=== PATIENT | male | born 1965 | race Caucasian/White ===

== ENCOUNTER 2017-08-15 12:28 | Emergency (ER) | payer SELFPAY ==
[2017-08-15] MEDS ORDERED: Ondansetron ODT TAB* 4 MG SL ONE (13:52)
[2017-08-15 14:35] LABS: Hematocrit 49 % (42-52); Hemoglobin 16.7 g/dl (14.0-18.0); Mean Corpuscular HGB Conc 34 g/dl (31-36); Mean Corpuscular Hemoglobin 33 pg (27-31); Mean Corpuscular Volume 99 fL (80-94); Mean Platelet Volume 9 um3 (7.4-10.4); Red Blood Count 4.99 10^6/ul (4.0-5.4); Red Cell Distribution Width 15 % (10.5-15); White Blood Count 12.5 10^3/ul (3.5-10.8)
--- NOTE | 2017-08-15 14:46 | ED ---
Headache - HPI Summary HPI Summary: Patient presents to the ED 4 days after ingesting a small amount of crazy glue after trying to use the glue to put a denture/filling back into place. Since that time he states he has felt as though he has had a dry mouth, N/V and LLQ abdominal cramping. Denies diarrhea. Endorses dry mouth. He states all the symptoms began immediately after he swallowed the glue. Denies fevers, sweats or chills. Denies SOB, chest pain, palpitations or rashes. - History Of Current Complaint Chief Complaint: EDGeneral Stated Complaint: DENTAL ISSUE/USED CRAZY GLUE Time Seen by Provider: 08/15/17 13:31 Hx Obtained From: Patient Onset/Duration: Sudden Onset Initially Headache Was: Mild Currently Pain Is: Mild Timing: Constant Character: Dull Aggravating Factor: Nothing Allevating Factors: Nothing - Risk Factors SAH Risk Factors: Negative Meningitis Risk Factors: Negative Temporal Arteritis Risk Factors: Negative - Allergies/Home Medications Allergies/Adverse Reactions: Allergies Allergy/AdvReac Type Severity Reaction Status Date / Time No Known Allergies Allergy Verified 08/15/17 13:36 PMH/Surg Hx/FS Hx/Imm Hx Previously Healthy: Yes - Immunization History Hx Pertussis Vaccination: No Immunizations Up to Date: Unable to Obtain/Confirm Infectious Disease History: No Infectious Disease History: Denies: Traveled Outside the [place] in Last 30 Days - Social History Occupation: Employed Full-time Lives: With Family Alcohol Use: Daily Alcohol Amount: fireball and beer Hx Substance Use: No Substance Use Type: Reports: None Hx Tobacco Use: Yes Smoking Status (MU): Light Every Day Tobacco Smoker Review of Systems Constitutional: Negative Positive: Fatigue. Negative: Fever, Chills Eyes: Negative Positive: Other - dry mouth Cardiovascular: Negative Respiratory: Negative Positive: Abdominal Pain - LLQ pain intermittent, Vomiting, Nausea Genitourinary: Negative Positive: no symptoms reported, see HPI Positive: Headache Psychological: Normal All Other Systems Reviewed And Are Negative: Yes Physical Exam Triage Information Reviewed: Yes Vital Signs On Initial Exam: Initial Vitals Temp Pulse Resp BP Pulse Ox 98.4 F 93 20 146/78 96 08/15/17 12:36 08/15/17 12:36 08/15/17 12:36 08/15/17 12:36 08/15/17 12:36 Vital Signs Reviewed: Yes Appearance: Positive: Well-Appearing, Well-Nourished Skin: Positive: Warm, Skin Color Reflects Adequate Perfusion, Dry Head/Face: Positive: Normal Head/Face Inspection Eyes: Positive: EOMI, PARTH, Conjunctiva Clear Neck: Positive: Supple, Nontender, No Lymphadenopathy Respiratory/Lung Sounds: Positive: Clear to Auscultation, Breath Sounds Present Cardiovascular: Positive: Normal, RRR, Pulses are Symmetrical in both Upper and Lower Extremities Musculoskeletal: Positive: Normal, Strength/ROM Intact Neurological: Positive: Sensory/Motor Intact, Alert, Oriented to Person Place, Time, CN Intact II-III, Speech Normal Psychiatric: Positive: Normal - Klaudia Coma Scale Coma Scale Total: 15 Diagnostics - Vital Signs Vital Signs Temp Pulse Resp BP Pulse Ox 08/15/17 13:34 80 97 08/15/17 13:32 153/77 08/15/17 12:36 98.4 F 93 20 146/78 96 - Laboratory Result Diagrams: 08/15/17 14:10 08/15/17 14:10 Lab Statement: Any lab studies that have been ordered have been reviewed, and results considered in the medical decision making process. Headache Course/Dx - Course Course Of Treatment: During the course of treatment, patient was encouraged to try to drink more water as symptoms have likely been caused by not drinking water in the last 4 days. He is given zofran with improvement and encouraged gatorate and water. Likely LLQ pain intermittently from constipation from dehydration. He states he feels OK today per patient. Encouraged BIOTENE for dry mouth. Crazy glue ingredients noted to only be lethal in extremely high doses and swallowing small amounts would likely not cause this cycle of symptoms. I have discussed this with patient and he agrees to try the nausea medication and biotene and return if symptoms worsen. - Diagnoses Provider Diagnoses: Nausea & vomiting Discharge - Discharge Plan Condition: Stable Disposition: HOME Prescriptions: Ondansetron ODT TAB* [Zofran 4 MG Odt TAB*] 4 mg PO Q6H PRN #12 tab.odt MDD 4 PRN Reason: Nausea Patient Education Materials: Acute Nausea and Vomiting (ED) Forms: *Work Release Referrals: No Primary Care Phys,NOPCP [Primary Care Provider] - Additional Instructions: BIOTENE over the counter for dry mouth If you are having episodes of vomiting, you may become dehydrated. Drink plenty of fluids. If you feel you cannot keep enough fluids down, you may supplement with drinks like Gatorade or V8 juice. This will help balance your electrolytes which are lost during dehydration. Take any medication prescribed to you as directed. Zofran as prescribed. Slowly introduce foods into your diet that you can tolerate. Examples of low reactive foods are crackers, soup, rice, and breads. See below. If you have any questions regarding your medications, you may call the office or your pharmacist. If your symptoms fail to improve or worsen, please call your primary care provider or seek other medical attention. Drink small amounts of fluid as tolerated When able to eat follow BRAT diet: Bananas, rice, applesauce, toast Return to ED if develop fever that does not respond to Tylenol or ibuprofen, severe abdominal pain, or any new or worsening symptoms If you are unable to have a bowel movement or feel constipated, I recommend SENNA capsules at night Rest for the next few days until you replete your fluids If anything becomes worse, return to the ED
[2017-08-15 14:48] LABS: Albumin 3.8 g/dL (3.2-5.2); BUN/Creatinine Ratio 10.5 (8-20); EGFR African American 120.1 (>60); EGFR Non-African American 93.4 (>60); Globulin 2.6 g/dL (2-4); Potassium 4.1 mmol/L (3.5-5.0); Total Bilirubin 0.5 mg/dL (0.2-1.0); Total Protein 6.4 g/dL (6.4-8.9)
[2017-08-15 15:10] VITALS: BP 133/67
== END 2017-08-15 15:14 | disposition home or self-care (01) ==
LOC: ED 12:28
DX: R11.2 Nausea with vomiting, unspecified (principal); R10.32 Left lower quadrant pain; R51 Headache; F17.210 Nicotine dependence, cigarettes, uncomplicated
CPT/HCPCS: 36415; 80053; 83605; 85025; 99282; A9270-GY

== ENCOUNTER 2017-11-29 20:34 | Emergency (ER) | payer SELFPAY ==
[2017-11-29] MEDS ORDERED: Nitroglycerin 2% OINT* 1 GM PAK TOPICAL ONE (20:46)
--- NOTE | 2017-11-29 21:06 | RAD ---
HISTORY: Chest pain COMPARISONS: June 10, 2013 VIEWS: 2: frontal portable view of the chest at 8:58 PM FINDINGS: LINES AND TUBES: None. CARDIOMEDIASTINAL SILHOUETTE: The cardiomediastinal silhouette is normal for portable technique. PLEURA: The costophrenic angles are sharp. No pleural abnormalities are noted. LUNG PARENCHYMA: The lungs are clear. ABDOMEN: The upper abdomen is clear. There is no subphrenic gas. BONES AND SOFT TISSUES: No bone or soft tissue abnormalities are noted. IMPRESSION: NO ACTIVE CARDIOPULMONARY DISEASE.
[2017-11-29 21:15] LABS: ABS Basophils 0.1 10^3/ul (0-0.2); ABS Eosinophils 0.4 10^3/ul (0-0.6); ABS Lymphocytes 2.8 10^3/ul (1.0-4.8); ABS Neutrophils 7.3 10^3/ul (1.5-7.7); ABS Nucleated RBC 0 10^3/ul; Eosinophil % 3.1 % (0-6); Hematocrit 45 % (42-52); Hemoglobin 15.2 g/dl (14.0-18.0); Lymphocyte % 24.4 % (25-47); Mean Corpuscular HGB Conc 34 g/dl (31-36); Mean Corpuscular Hemoglobin 33 pg (27-31); Mean Corpuscular Volume 96 fL (80-94); Mean Platelet Volume 8.4 um3 (7.4-10.4); Nucleated Red Blood Cells % 0.1; Platelet Count 241 10^3/ul (150-450); Red Blood Count 4.65 10^6/ul (4.0-5.4); Red Cell Distribution Width 14 % (10.5-15); White Blood Count 11.5 10^3/ul (3.5-10.8)
[2017-11-29 21:23] LABS: INR 0.86 (0.77-1.02)
[2017-11-29 21:35] LABS: EGFR Non-African American 80.3 (>60)
--- NOTE | 2017-11-29 21:55 | ED ---
Mendoza Hillman Tiffany, scribed for Johnnie Skaggs on 11/29/17 at 2051 . HPI Chest Pain - HPI Summary HPI Summary: The patient is a 52 year old M [facility] c/o chest pain since one hour ago. The patient rates the pain 11/10 in severity. Symptoms aggravated by nothing. Symptoms alleviated by nothing. Reports nausea. Denies vomiting. His daughter recently three months ago. Today patient received text messages that shes still alive. No hx of diabetes or hypertension. Hx of PTSD and dissociative behavior. - History of Current Complaint Chief Complaint: EDChestPainROMI Time Seen by Provider: 11/29/17 20:40 Hx Obtained From: Patient Onset/Duration: Started Hours Ago - 1 hour ago, Still Present Timing: Constant Current Severity: Severe Pain Intensity: 11 Pain Scale Used: 0-10 Numeric Aggravating Factor(s): Nothing Alleviating Factor(s): Nothing Associated Signs and Symptoms: Positive: Nausea. Negative: Vomiting - Allergy/Home Medications Allergies/Adverse Reactions: Allergies Allergy/AdvReac Type Severity Reaction Status Date / Time No Known Allergies Allergy Verified 08/15/17 13:36 Home Medications: Home Medications NK [No Home Medications Reported] 11/29/17 [History Confirmed 11/29/17] PMH/Surg Hx/FS Hx/Imm Hx Previously Healthy: No Endocrine/Hematology History: Denies: Hx Diabetes Cardiovascular History: Denies: Hx Hypertension History: Denies: Hx Renal Disease Sensory History: Denies: Hx Contacts or Glasses, Hx Deafness Opthamlomology History: Denies: Hx Contacts or Glasses, Hx Legally Blind EENT History: Denies: Hx Deafness Psychiatric History: Reports: Hx Post Traumatic Stress Disorder, Other Psychiatric Issues/Disorders - Dissociative behavior Infectious Disease History: No Infectious Disease History: Denies: Traveled Outside the [place] in Last 30 Days - Family History Known Family History: Negative: Cardiac Disease - Social History Alcohol Use: Daily Alcohol Amount: fireball and beer Hx Substance Use: Yes Substance Use Type: Reports: Marijuana Hx Tobacco Use: Yes Smoking Status (MU): Smoker, Current Status Unknown Review of Systems Positive: Chest Pain Positive: Nausea. Negative: Vomiting All Other Systems Reviewed And Are Negative: Yes Physical Exam - Summary Physical Exam Summary: Appearance: Well appearing, no pain distress Skin: warm, dry, reflects adequate perfusion Head/face: normal Eyes: EOMI, PARTH ENT: normal Neck: supple, non-tender Respiratory: CTA, breath sounds present Cardiovascular: RRR, pulses symmetrical Abdomen: non-tender, soft Bowel: present Musculoskeletal: normal, strength/ROM intact Psych: anxious Triage Information Reviewed: Yes Vital Signs On Initial Exam: Initial Vitals Temp Pulse Resp BP Pulse Ox 98.7 F 61 30 138/78 100 11/29/17 20:35 11/29/17 20:35 11/29/17 20:35 11/29/17 20:35 11/29/17 20:35 Vital Signs Reviewed: Yes Diagnostics - Vital Signs Vital Signs Temp Pulse Resp BP Pulse Ox 11/29/17 20:35 98.7 F 61 30 138/78 100 - Laboratory Lab Results: Lab Results 11/29/17 11/29/17 11/29/17 Range/Units 21:00 21:00 21:00 WBC 11.5 H (3.5-10.8) 10^3/ul RBC 4.65 (4.0-5.4) 10^6/ul Hgb 15.2 (14.0-18.0) g/dl Hct 45 (42-52) % MCV 96 H (80-94) fL MCH 33 H (27-31) pg MCHC 34 (31-36) g/dl RDW 14 (10.5-15) % Plt Count 241 (150-450) 10^3/ul MPV 8.4 (7.4-10.4) um3 Neut % (Auto) 63.7 (38-83) % Lymph % (Auto) 24.4 L (25-47) % Catahoula % (Auto) 8.3 H (0-7) % Eos % (Auto) 3.1 (0-6) % Baso % (Auto) 0.5 (0-2) % Absolute Neuts (auto) 7.3 (1.5-7.7) 10^3/ul Absolute Lymphs (auto) 2.8 (1.0-4.8) 10^3/ul Absolute Monos (auto) 1.0 H (0-0.8) 10^3/ul Absolute Eos (auto) 0.4 (0-0.6) 10^3/ul Absolute Basos (auto) 0.1 (0-0.2) 10^3/ul Absolute Nucleated RBC 0 10^3/ul Nucleated RBC % 0.1 INR (Anticoag Therapy) (0.77-1.02) APTT (26.0-36.3) seconds Sodium 137 (133-145) mmol/L Potassium 3.6 (3.5-5.0) mmol/L Chloride 103 (101-111) mmol/L Carbon Dioxide 25 (22-32) mmol/L Anion Gap 9 (2-11) mmol/L BUN 12 (6-24) mg/dL Creatinine 0.98 (0.67-1.17) mg/dL Est GFR ( Amer) 103.3 (>60) Est GFR (Non-Af Amer) 80.3 (>60) BUN/Creatinine Ratio 12.2 (8-20) Glucose 108 H (70-100) mg/dL Lactic Acid (0.5-2.0) mmol/L Calcium 9.0 (8.6-10.3) mg/dL Total Bilirubin 0.60 (0.2-1.0) mg/dL AST 13 (13-39) U/L ALT 17 (7-52) U/L Alkaline Phosphatase 47 (34-104) U/L Troponin I 0.00 (<0.04) ng/mL B-Natriuretic Peptide 26 ( - 100) pg/mL Total Protein 6.4 (6.4-8.9) g/dL Albumin 4.0 (3.2-5.2) g/dL Globulin 2.4 (2-4) g/dL Albumin/Globulin Ratio 1.7 (1-3) 11/29/17 11/29/17 Range/Units 21:00 21:00 WBC (3.5-10.8) 10^3/ul RBC (4.0-5.4) 10^6/ul Hgb (14.0-18.0) g/dl Hct (42-52) % MCV (80-94) fL MCH (27-31) pg MCHC (31-36) g/dl RDW (10.5-15) % Plt Count (150-450) 10^3/ul MPV (7.4-10.4) um3 Neut % (Auto) (38-83) % Lymph % (Auto) (25-47) % Catahoula % (Auto) (0-7) % Eos % (Auto) (0-6) % Baso % (Auto) (0-2) % Absolute Neuts (auto) (1.5-7.7) 10^3/ul Absolute Lymphs (auto) (1.0-4.8) 10^3/ul Absolute Monos (auto) (0-0.8) 10^3/ul Absolute Eos (auto) (0-0.6) 10^3/ul Absolute Basos (auto) (0-0.2) 10^3/ul Absolute Nucleated RBC 10^3/ul Nucleated RBC % INR (Anticoag Therapy) 0.86 (0.77-1.02) APTT 30.2 (26.0-36.3) seconds Sodium (133-145) mmol/L Potassium (3.5-5.0) mmol/L Chloride (101-111) mmol/L Carbon Dioxide (22-32) mmol/L Anion Gap (2-11) mmol/L BUN (6-24) mg/dL Creatinine (0.67-1.17) mg/dL Est GFR ( Amer) (>60) Est GFR (Non-Af Amer) (>60) BUN/Creatinine Ratio (8-20) Glucose (70-100) mg/dL Lactic Acid 1.3 (0.5-2.0) mmol/L Calcium (8.6-10.3) mg/dL Total Bilirubin (0.2-1.0) mg/dL AST (13-39) U/L ALT (7-52) U/L Alkaline Phosphatase (34-104) U/L Troponin I (<0.04) ng/mL B-Natriuretic Peptide ( - 100) pg/mL Total Protein (6.4-8.9) g/dL Albumin (3.2-5.2) g/dL Globulin (2-4) g/dL Albumin/Globulin Ratio (1-3) Result Diagrams: 11/29/17 21:00 11/29/17 21:00 Lab Statement: Any lab studies that have been ordered have been reviewed, and results considered in the medical decision making process. - Radiology CXR Radiology Interpretation Completed By: Radiologist - NO ACTIVE CARDIOPULMONARY DISEASE. ED physician has reviewed this report. - EKG 20:36 Cardiac Rate: NL - 62 BPM EKG Rhythm: Sinus Rhythm EKG Interpretation: Non-specific ST changes. Questionable early repolarization. Re-Evaluation - Re-Evaluation First Eval Re-Evaluation Time: 21:44 Change: Unchanged Comment: Patient still complains of chest pain. Chest Pain Course/Dx - Course Course Of Treatment: 52 y/o M BIBA c/o chest pain. Discussed patient care with cardiology, who advised that patient is not having an acute WI. CXR is negative. Labs are negative. Discussed with hospitalist, who says patient has no risk factors and cannot be admitted. Patient will be signed out to Dr. Aguirre , awaiting disposition. - Chest Pain Differential Diagnosis/HQI/PQRI: Acute WI, ACS, Chest Wall, Lower Respiratory Infection - Diagnoses Provider Diagnoses: Chest pain - Provider Notifications Discussed Care Of Patient With: Andrew Tripathi Time Discussed With Above Provider: 20:53 Instructed by Provider To: Other - Dr. Tripathi (cardiology) advised that patient is not having an acute WI. Also discussed with Dr. Martinez (hospitalist) at 21:44 , who said that patient has no risk factors and therefore cannot be admitted. Discharge - Sign-Out/Discharge Documenting (check all that apply): Sign-Out Patient Signing out patient TO: Prince Aguirre - Awaiting disposition - Discharge Plan Referrals: No Primary Care Phys,NOPCP [Primary Care Provider] - The documentation as recorded by the Mendoza wild Tiffany accurately reflects the service I personally performed and the decisions made by me, Johnnie Skaggs.
[2017-11-30 01:03] VITALS: BP 105/74
--- NOTE | 2017-11-30 20:06 | ED ---
I, Stacy Farmer, scribed for Prince Aguirre MD on 11/29/17 at 2224 . Re-Evaluation - Re-Evaluation First Eval Re-Evaluation Time: 21:44 Change: Unchanged Comment: Patient still complains of chest pain. Second Eval Re-Evaluation Time: 00:38 Change: Improved Comment: pt states chest pain resolved. pt resting comfortably in bed. pt repeat troponin negative. Pt with symptoms exacerbated by acute stress reaction. Pt with low risk chest pain, HEART score - 1. Pt hemodynamically stable with no ACS risk factors. Plan for outpatient cardiac w/u. Course/Dx - Course Course Of Treatment: 52 y/o M BIBA c/o chest pain. Discussed patient care with cardiology, who advised that patient is not having an acute SC. CXR is negative. Labs are negative. Discussed with hospitalist, who says patient has no risk factors and cannot be admitted. Patient will be signed out to Dr. Aguirre , awaiting disposition. - Diagnoses Provider Diagnoses: Atypical chest pain, Acute stress reaction - Provider Notifications Time Discussed With Above Provider: 20:53 Instructed by Provider To: Other - Dr. Tripathi (cardiology) advised that patient is not having an acute SC. Also discussed with Dr. Martinez (hospitalist) at 21:44 , who said that patient has no risk factors and therefore cannot be admitted. Discharge - Sign-Out/Discharge Documenting (check all that apply): Discharge, Receiving Sign-Out Receiving patient FROM: Johnnie Skaggs - Pending disposition. - Discharge Plan Condition: Improved Disposition: HOME Prescriptions: Ketorolac TAB * [Toradol TAB *] 10 mg PO Q6H PRN #10 tab PRN Reason: Pain Patient Education Materials: Chest Pain (ED), Stress (ED) Referrals: No Primary Care Phys,NOPCP [Primary Care Provider] - Andrew Tripathi MD [Medical Doctor] - 3 Days - Billing Disposition and Condition Condition: IMPROVED Disposition: HOME The documentation as recorded by the Darian wild Sixian accurately reflects the service I personally performed and the decisions made by me, Prince Aguirre MD.
== END 2017-11-30 01:07 | disposition home or self-care (01) ==
LOC: ED 20:34
DX: R07.89 Other chest pain (principal); Z87.891 Personal history of nicotine dependence
CPT/HCPCS: 36415; 71045; 80053; 83605; 83880; 84484; 85025; 85610; 85730; 93005; 99284; A9270-GY

== ENCOUNTER 2017-12-01 21:46 | Emergency (ER) | payer SELFPAY ==
[2017-12-01] MEDS ORDERED: oxyCODONE/Acetamin 5/325 MG* TAB PO ONE (23:38)
[2017-12-02 00:33] LABS: INR 0.83 (0.77-1.02)
[2017-12-02 00:36] LABS: EGFR Non-African American 74.2 (>60)
[2017-12-02 00:46] LABS: ABS Basophils 0.1 10^3/ul (0-0.2); ABS Eosinophils 0.4 10^3/ul (0-0.6); ABS Neutrophils 5.9 10^3/ul (1.5-7.7); ABS Nucleated RBC 0 10^3/ul; Hematocrit 41 % (42-52); Hemoglobin 14.2 g/dl (14.0-18.0); Lymphocyte % 28.7 % (25-47); Mean Corpuscular HGB Conc 34 g/dl (31-36); Mean Corpuscular Hemoglobin 33 pg (27-31); Mean Corpuscular Volume 97 fL (80-94); Nucleated Red Blood Cells % 0; Platelet Count 221 10^3/ul (150-450); Red Blood Count 4.27 10^6/ul (4.0-5.4); Red Cell Distribution Width 14 % (10.5-15); White Blood Count 10.5 10^3/ul (3.5-10.8)
[2017-12-02] MEDS ORDERED: Iohexol 350* (CONTRAST) 500 ML MDV IV ONE (01:37)
[2017-12-02 03:45] VITALS: BP 124/74
--- NOTE | 2017-12-02 04:54 | ED ---
Marco Hillman Nikita, scribed for Brandon Boles MD on 12/01/17 at 2305 . HPI Chest Pain - HPI Summary HPI Summary: This patient is a 52 year old M presenting to ED with a chief complaint of L and R-sided CP since 2 days ago. The CC is described as sharp/stabbing, non- radiating, and alleviated since 2 days ago but worsened since today. The patient rates the pain 9/10 in severity. Symptoms aggravated by exertion, sitting up, and deep breaths. Symptoms alleviated by nothing. Patient reports SOB, stress, numbness in the fingers bilaterally, L hand shaking (during his episode of CP, which caused him to drop an object he was holding in that hand), and palpitations. Patient denies recent injury or strains and abdominal pain. Patient was previously seen in the ED 2 days ago for similar symptoms but was D/ C. - History of Current Complaint Chief Complaint: EDChestWallPain Hx Obtained From: Patient Onset/Duration: Started Days Ago, Still Present, Worse Since Timing: Constant Initial Severity: Severe Current Severity: Severe Pain Intensity: 9 Pain Scale Used: 0-10 Numeric Chest Pain Location: Discrete at: - L and R-sided chest pain Chest Pain Radiates: No Character: Sharp/Stabbing Aggravating Factor(s): Exertion, Position - sitting up, Deep Breaths Alleviating Factor(s): Nothing Associated Signs and Symptoms: Positive: Other: - Patient reports SOB, stress, numbness in the fingers bilaterally, L hand shaking (during his episode of CP, which caused him to drop an object he was holding in that hand), and palpitations. Patient denies recent injury or strains and abdominal pain. - Allergy/Home Medications Allergies/Adverse Reactions: Allergies Allergy/AdvReac Type Severity Reaction Status Date / Time No Known Allergies Allergy Verified 08/15/17 13:36 PMH/Surg Hx/FS Hx/Imm Hx Endocrine/Hematology History: Denies: Hx Diabetes Cardiovascular History: Denies: Hx Coronary Artery Disease, Hx Hypertension History: Denies: Hx Renal Disease Sensory History: Denies: Hx Contacts or Glasses, Hx Legally Blind, Hx Deafness Opthamlomology History: Denies: Hx Contacts or Glasses, Hx Legally Blind Psychiatric History: Reports: Hx Post Traumatic Stress Disorder, Other Psychiatric Issues/Disorders - Dissociative behavior Infectious Disease History: No Infectious Disease History: Denies: Traveled Outside the [place] in Last 30 Days - Family History Known Family History: Negative: Cardiac Disease - Social History Alcohol Use: Daily Alcohol Amount: fireball and beer Hx Substance Use: Yes Substance Use Type: Reports: Marijuana Hx Tobacco Use: Yes Smoking Status (MU): Smoker, Current Status Unknown Review of Systems Positive: Palpitations, Chest Pain - L and R-sided CP Positive: Shortness Of Breath Negative: Abdominal Pain Positive: Other - denies any recent injuries or strains Neurological: Other - L hand shaking (during his episode of CP, which caused him to drop an object he was holding in that hand) Positive: Numbness - in the fingers bilaterally Positive: Other - stress All Other Systems Reviewed And Are Negative: Yes Physical Exam - Summary Physical Exam Summary: Appearance: Well-appearing, Well-nourished Skin: Warm, No bruising, no skin changes Eyes: Normal ENT: Normal Neck: Supple, nontender Respiratory: Clear to auscultation, good breath sounds Cardiovascular: Normal S1, S2. No murmurs. Normal distal pulses in tibial and radial bilaterally. Exquisite tenderness to palpation of anterior chest wall Abdomen: Soft, nontender Musculoskeletal: Normal, Strength/ROM Intact Neurological: Normal, A&Ox3 Psychiatric: Normal General: No acute distress Triage Information Reviewed: Yes Vital Signs On Initial Exam: Initial Vitals Temp Pulse Resp BP Pulse Ox 97.3 F 73 20 122/67 99 12/01/17 21:47 12/01/17 21:47 12/01/17 21:47 12/01/17 21:47 12/01/17 21:47 Vital Signs Reviewed: Yes Diagnostics - Vital Signs Vital Signs Temp Pulse Resp BP Pulse Ox 12/01/17 22:30 67 14 109/70 97 12/01/17 22:07 69 14 98 12/01/17 22:05 118/78 12/01/17 21:47 97.3 F 73 20 122/67 99 - Laboratory Result Diagrams: 12/02/17 00:05 12/02/17 00:05 Lab Statement: Any lab studies that have been ordered have been reviewed, and results considered in the medical decision making process. - Radiology CXR Radiology Interpretation Completed By: ED Physician - No acute intrathoracic disease. - CT CTA Chest CT Interpretation Completed By: Radiologist - No evidence of acute pathology. ED physician has reviewed this radiology report. - EKG 2218 Cardiac Rate: NL EKG Rhythm: Sinus Rhythm - An EKG reveals NSR (67 BPM), No ischemic ST changes, no ectopy. Re-Evaluation - Re-Evaluation First Eval Re-Evaluation Time: 03:32 Change: Improved Chest Pain Course/Dx - Course Assessment/Plan: Feels better after medications here in the ED. CT shows no evidence of PE or dissection. Cardiac enzymes negative x2. Patient instructed to follow up [facility] for further care and to take anti-inflammatory medications as described on prior visit. - Chest Pain Differential Diagnosis/HQI/PQRI: Other: - chest wall pain - Diagnoses Provider Diagnoses: Chest wall pain Discharge - Sign-Out/Discharge Documenting (check all that apply): Discharge - Discharge Plan Condition: Improved Disposition: HOME Patient Education Materials: Chest Wall Pain (ED) Referrals: [facility] [Provider Group] Andrew Tripathi MD [Medical Doctor] - Additional Instructions: PLEASE TAKE MEDICATIONS DIRECTED PLEASE MAKE AN APPOINTMENT FIRST THING IN THE MORNING TO BE SEEN BY A ACCESS NURSE WITHIN 1-2 WEEKS PLEASE RETURN IMMEDIATELY TO THE ER IF YOU HAVE ANY WORSENING OR CONCERNING SYMPTOMS PLEASE MAKE AN APPOINTMENT TO BE SEEN BY YOUR PRIMARY CARE DOCTOR WITHIN 1 WEEK The documentation as recorded by the Marco wild Nikita accurately reflects the service I personally performed and the decisions made by me, Brandon Boles MD.
--- NOTE | 2017-12-02 08:01 | RAD ---
HISTORY: Chest pain COMPARISONS: November 29, 2017 VIEWS: 1: frontal portable view of the chest at 12:15 AM FINDINGS: LINES AND TUBES: None. CARDIOMEDIASTINAL SILHOUETTE: The cardiomediastinal silhouette is normal for portable technique. PLEURA: The costophrenic angles are sharp. No pleural abnormalities are noted. LUNG PARENCHYMA: The lungs are clear. ABDOMEN: The upper abdomen is clear. There is no subphrenic gas. BONES AND SOFT TISSUES: No bone or soft tissue abnormalities are noted. IMPRESSION: NO ACTIVE CARDIOPULMONARY DISEASE.
--- NOTE | 2017-12-02 08:12 | RAD ---
HISTORY: Chest pain COMPARISONS: None TECHNIQUE: Multiple contiguous axial CT scans of the chest were obtained after the administration of nonionic intravenous contrast, timed to the pulmonary arterial phase of contrast enhancement.. Coronal and sagittal multiplanar reformations are also submitted for review. FINDINGS: NECK AND THYROID: The lower neck and thyroid are unremarkable. CHEST WALL: There is no lower cervical, axillary, or supraclavicular lymphadenopathy by size criteria. HEART AND PERICARDIUM: The heart is unremarkable. AORTA AND PULMONARY VASCULATURE: There is no pulmonary arterial filling defect to suggest pulmonary embolism. There is no linear filling defect within the aorta to suggest aortic dissection. MEDIASTINUM: There is no mediastinal lymphadenopathy by size criteria. RACHEL: There is no hilar lymphadenopathy by size criteria. AIRWAY AND ESOPHAGUS: The airway is unremarkable, without endobronchial filling defect. The esophagus is grossly normal. LUNG PARENCHYMA: There is dependent atelectasis in the lung bases bilaterally. PLEURA: No pleural abnormalities are noted. UPPER ABDOMEN: The upper abdomen is unremarkable. BONES AND SOFT TISSUES: No bone or soft tissue abnormalities are noted. OTHER: None. IMPRESSION: NO PULMONARY ARTERIAL FILLING DEFECT TO SUGGEST PULMONARY EMBOLISM.
== END 2017-12-02 03:44 | disposition home or self-care (01) ==
LOC: ED 21:46
DX: R07.89 Other chest pain (principal); Z72.0 Tobacco use; R00.2 Palpitations
CPT/HCPCS: 36415; 71045; 71275; 80053; 83735; 84484; 85025; 85610; 85730; 86850; 86900; 86901; 93005; 99283; A9270-GY; Q9967

== ENCOUNTER 2019-02-28 18:39 | Inpatient (IN) | payer SELFPAY ==
[2019-02-28] MEDS ORDERED: NS 0.9% 1000 ML** 2,000 ML IV ONE (19:51)
--- NOTE | 2019-02-28 19:51 | ED ---
Headache - HPI Summary HPI Summary: This patient is a 53 year old M presenting to [facility] with a chief complaint of headache for the past few weeks described as a burning. He additionally reports temporary loss of vision from time to time, ringing in the ears, decreased balance with increased falls, weakness in the arms and legs, and difficulty sleeping. He reports difficulty with recalling names of loved ones and general thought processing. When asked, he reports chest pain and nausea. Denies abdominal pain. He reports he was a long time alcoholic for decades and he recently quit drinking a couple months ago. States he has not seen a doctor in many years. Patient reports feelings of depression. Charge nurse, Belinda, informed me that the patients fiance and children made multiple calls stating that he has had made multiple suicidal statements recently. - History Of Current Complaint Chief Complaint: EDHeadache Stated Complaint: "FIRE BURNING IN BRAIN, BLURRY VISION" PER PT Time Seen by Provider: 02/28/19 19:39 Hx Obtained From: Patient Onset/Duration: Started weeks ago Currently Pain Is: Current Pain Scale(0-10)= - 10 Character: Sharp - "Burning" Allevating Factors: Nothing Associated Signs And Symptoms: Visual Changes, Other (Noted In Comments) - Allergies/Home Medications Allergies/Adverse Reactions: Allergies Allergy/AdvReac Type Severity Reaction Status Date / Time No Known Allergies Allergy Verified 02/28/19 18:52 PMH/Surg Hx/FS Hx/Imm Hx Endocrine/Hematology History: Denies: Hx Diabetes Respiratory History: Denies: Hx Asthma History: Denies: Hx Renal Disease Sensory History: Denies: Hx Contacts or Glasses, Hx Legally Blind, Hx Deafness Opthamlomology History: Denies: Hx Contacts or Glasses, Hx Legally Blind Psychiatric History: Reports: Hx Post Traumatic Stress Disorder, Other Psychiatric Issues/Disorders - Dissociative behavior Infectious Disease History: No Infectious Disease History: Denies: Traveled Outside the [place] in Last 30 Days - Family History Known Family History: Negative: Cardiac Disease - Social History Alcohol Use: None Alcohol Amount: alcoholic for decades, quit two months ago Hx Substance Use: Yes Substance Use Type: Reports: Marijuana Hx Tobacco Use: Yes Smoking Status (MU): Smoker, Current Status Unknown Review of Systems Positive: Chest Pain Positive: Nausea. Negative: Abdominal Pain Neurological: Other - decreased balance, Positive: Headache, Weakness, Syncope All Other Systems Reviewed And Are Negative: Yes Physical Exam - Summary Physical Exam Summary: Appearance: middle aged man sitting on stretcher in no acute distress Skin: Warm, dry, no obvious rash Eyes: sclera anicteric, no conjunctival pallor ENT: mucous membranes moist, pharynx appears normal Neck: Supple, nontender Respiratory: Clear to auscultation, no signs of respiratory distress Cardiovascular: Normal S1, S2. No murmurs. Normal distal pulses in tibial and radial bilaterally. Abdomen: Soft, nontender, normal active bowel sounds present Musculoskeletal: Normal, Strength/ROM Intact, Motor function in all 4 extremities is normal and symmetric. There is no rigidity or tremor noted. Neurological: A&Ox3, awake and alert, mentation is normal, speech is fluent and appropriate, Level of consciousness nml. The patient is alert and oriented. Cranial nerves are grossly intact. Gaze is conjugate and without nystagmus. Peripheral vision is intact to confrontation. There are no gross sensory abnormalities to light touch. There is no truncal or fine motor ataxia. Wide based antalgic gait. 3-4 beats of clonus on ankle jerks. Psychiatric: affect is normal, does not appear anxious or depressed Triage Information Reviewed: Yes Vital Signs On Initial Exam: Initial Vitals Temp Pulse Resp BP Pulse Ox 98.8 F 65 18 137/75 96 02/28/19 18:47 02/28/19 18:47 02/28/19 18:47 02/28/19 18:47 02/28/19 18:47 Vital Signs Reviewed: Yes - Klaudia Coma Scale Best Eye Response: 4 - Spontaneous Best Motor Response: 6 - Obeys Commands Best Verbal Response: 5 - Oriented Coma Scale Total: 15 Diagnostics - Vital Signs Vital Signs Temp Pulse Resp BP Pulse Ox 02/28/19 18:47 98.8 F 65 18 137/75 96 - Laboratory Result Diagrams: 02/28/19 20:08 02/28/19 20:08 Lab Statement: Any lab studies that have been ordered have been reviewed, and results considered in the medical decision making process. - CT Brain CT CT Interpretation Completed By: Radiologist Summary of CT Findings: No acute intracranial abnormality. ED Physician has reviewed this report. - EKG 2001 Cardiac Rate: Bradycardia - 58 BPM EKG Rhythm: Sinus Bradycardia Summary of EKG Findings: NSR at 58 BPM, P waves, QRS complex, and T waves are within normal limits, T waves and intervals are normal, no ischemic changes. This is a normal EKG Headache Course/Dx - Course Course Of Treatment: 53 year old M presenting to [facility] with a chief complaint of headache for the past few weeks described as a burning with mutliple neurological symptoms. Charge nurse, Belinda, informed me that the patients fiance and children made multiple calls stating that he has had made multiple suicidal statements recently. Patient is given IVF and percocet. His medical workup is unremarkable with a normal EKG, Brain CT, and bloodwork. Patient is medically cleared for mental health evaluation. After his evaluation I was informed that per Dr. Sherwood the patient will be admitted with a diagnosis of depressive episode. - Diagnoses Provider Diagnoses: Depressive episode Discharge - Sign-Out/Discharge Documenting (check all that apply): Patient Departure - admit Patient Received Moderate/Deep Sedation with Procedure: No - Discharge Plan Condition: Stable [place]position[place] [place]illing Disposition and Condition Condition: STABLE Disposition: [place]iatric [place] [facility] [place] Attestation Statements Document Initiated by Scribe: Yes Documenting Scribe: Argentina Lopez Provider For Whom Scribe is Documenting (Include Credential): Armen Cruz MD Scribe Attestation: I, Argentina Lopez, scribed for Armen Cruz MD on 03/03/19 at 1059. Scribe Documentation Reviewed: Yes Provider Attestation: The documentation as recorded by the scribeArgentina accurately reflects the service I personally performed and the decisions made by me, Armen Cruz MD Status of Scribe Document: Viewed
[2019-02-28] MEDS ORDERED: Thiamine IV* 100 MG, Folic Acid IV* 1 MG, Multiple Vitamin IV ADULT* 10 ML in NS 0.9% 1... IV ONE (19:55)
[2019-02-28 20:14] LABS: ABS Basophils 0.1 10^3/ul (0-0.2); ABS Eosinophils 0.3 10^3/ul (0-0.6); ABS Lymphocytes 2.6 10^3/ul (1.0-4.8); ABS Monocytes 0.7 10^3/ul (0-0.8); ABS Neutrophils 5.7 10^3/ul (1.5-7.7); Eosinophil % 3.7 %; Hematocrit 45 % (42-52); Hemoglobin 15.3 g/dL (14.0-18.0); Lymphocyte % 27.4 %; Mean Corpuscular HGB Conc 34 g/dL (31-36); Mean Corpuscular Hemoglobin 33 pg (27-31); Mean Corpuscular Volume 96 fL (80-94); Mean Platelet Volume 9.2 fL (7.4-10.4); Platelet Count 207 10^3/uL (150-450); Red Blood Count 4.66 10^6 /uL (4.18-5.48); Red Cell Distribution Width 14 % (10-15); White Blood Count 9.3 10^3/uL (3.5-10.8)
[2019-02-28 20:19] LABS: INR 0.93 (0.82-1.09)
[2019-02-28 20:30] LABS: ALT 29 U/L (7-52); Albumin 4.1 g/dL (3.2-5.2); Albumin/Globulin Ratio 1.6 (1-3); Alkaline Phosphatase 56 U/L (34-104); BUN/Creatinine Ratio 9.4 (8-20); Blood Urea Nitrogen 9 mg/dL (6-24); CO2 Carbon Dioxide 27 mmol/L (22-32); Chloride 107 mmol/L (101-111); EGFR African American 99.1 (>60); EGFR Non-African American 81.9 (>60); Globulin 2.5 g/dL (2-4); Glucose 122 mg/dL (70-100); Sodium 139 mmol/L (135-145); Total Protein 6.6 g/dL (6.4-8.9)
[2019-02-28 20:39] LABS: Alcohol < 10 mg/dL (<10)
[2019-02-28 21:20] LABS: AST 15 U/L (13-39); Anion Gap 5 mmol/L (2-11); Potassium 4.2 mmol/L (3.5-5.0)
[2019-03-01] MEDS ORDERED: oxyCODONE/Acetamin 5/325 MG* TAB PO ONE (01:06)
[2019-03-01] MEDS ORDERED: Nicotine* 2MG (FRUIT FLAVOR) GUM PO PRN (05:49)
[2019-03-01] MEDS ORDERED: Al Hydrox/Mg Hydrox/Simet LIQ* 30 ML UDC PO PRN (05:49)
[2019-03-01] MEDS ORDERED: Acetaminophen TAB* 325 MG PO PRN (05:49)
[2019-03-01] MEDS: Nicotine PATCH 21 MG/24 HR* PATCH TRANSDERM SCH (12:48)
[2019-03-01] MEDS: Vitamin THERAPEUTIC TAB PO SCH (12:48)
[2019-03-01] MEDS ORDERED: ALPRAZolam TAB* 0.5 MG PO PRN (17:57)
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
[2019-03-01] MEDS ORDERED: Nicotine Patch Removal NOTE PATCH OFF SCH (21:00)
[2019-03-02 08:17] LABS: HDL Cholesterol 36.5 mg/dL
[2019-03-02] MEDS: Vitamin THERAPEUTIC TAB PO SCH (09:41)
[2019-03-02] MEDS: Nicotine PATCH 21 MG/24 HR* PATCH TRANSDERM SCH (09:42)
[2019-03-02 11:39] VITALS: BP 112/84
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
== END 2019-03-02 14:51 | disposition home or self-care (01) | DRG 882 ==
LOC: ED 18:39 → BSU 03-01 05:14
PROVIDERS: ADMIT Psychiatry & Neurology Psychiatry; ATTEND Psychiatry & Neurology Psychiatry
DX: F43.20 Adjustment disorder, unspecified (principal); R45.851 Suicidal ideations; R51 Headache; Z62.810 Personal history of physical and sexual abuse in childhood; F44.9 Dissociative and conversion disorder, unspecified; Z72.0 Tobacco use; Z87.820 Personal history of traumatic brain injury; Z80.8 Family history of malignant neoplasm of other organs or systems
CPT/HCPCS: 36415; 70450; 80053; 80061; 80320; 83036; 84443; 84484; 85025; 85610; 85652; 86618; 86780; 93005; 99222; 99238; 99285; A9270-GY; G0480; J3411

== ENCOUNTER 2019-04-20 18:35 | Emergency (ER) | payer SELFPAY ==
[2019-04-20 18:58] VITALS: BP 109/61
--- NOTE | 2019-04-20 19:26 | UC ---
Skin Complaint HPI - HPI Summary HPI Summary: 54-year-old male comes in with a chief complaint of rash on his left lower leg and feeling ill. The last evening he was out side. He wondered if he got bit by something on the warner on the left. Today the area developed redness and he started feeling ill felt like he has an infection. The area of redness is tender to palpation and also worse with weightbearing. No fevers measured. There was no tick seen. He wondered if he got bit by a spider. - History of Current Complaint Chief Complaint: UCSkin Time Seen by Provider: 04/20/19 19:13 Stated Complaint: INSECT BITE Pain Intensity: 7 - Allergy/Home Medications Allergies/Adverse Reactions: Allergies Allergy/AdvReac Type Severity Reaction Status Date / Time No Known Allergies Allergy Verified 04/20/19 18:58 PMH/Surg Hx/FS Hx/Imm Hx Previously Healthy: Yes - Surgical History Surgical History: None - Family History Known Family History: Negative: Cardiac Disease - Social History Alcohol Use: Occasionally Alcohol Amount: alcoholic for decades Substance Use Type: Marijuana Smoking Status (MU): Heavy Every Day Tobacco Smoker Type: Cigarettes - Immunization History Most Recent Influenza Vaccination: n/a Most Recent Pneumonia Vaccination: n/a Review of Systems All Other Systems Reviewed And Are Negative: Yes Constitutional: Positive: Other - SEE HPI Skin: Positive: Other - SEE HPI Eyes: Positive: Negative ENT: Positive: Negative Respiratory: Positive: Negative Cardiovascular: Positive: Negative Gastrointestinal: Positive: Negative Motor: Positive: Negative Neurovascular: Positive: Negative Musculoskeletal: Positive: Negative Neurological: Positive: Negative Psychological: Positive: Negative Is Patient Immunocompromised?: No Physical Exam Triage Information Reviewed: Yes Appearance: Well-Appearing, No Pain Distress, Well-Nourished Vital Signs: Initial Vital Signs Temp 98.0 F 04/20/19 18:52 Pulse 67 04/20/19 18:52 Resp 16 04/20/19 18:52 BP 109/61 04/20/19 18:52 Pulse Ox 99 04/20/19 18:52 Vital Signs Reviewed: Yes Eye Exam: Normal Eyes: Positive: Conjunctiva Clear Neck: Positive: Supple Respiratory: Positive: No respiratory distress Musculoskeletal: Positive: Strength Intact, ROM Intact Neurological: Positive: Alert Psychological: Positive: Normal Response To Family, Age Appropriate Behavior Skin: Positive: Other - On the left anterior lower leg patient has a 4 mm diameter area of blanching erythema that's warm to touch. There is a punctate skin break but did have a piece it's grass sticking out of it which I pulled out. No other foreign body seen. No drainage no streaking. Course/Dx - Course Course Of Treatment: No tick was seen and if this was redness from a tick bite we expect that the tick would've had to have been embedded for more than 36 hours. There was a piece of grass at the injury site it's unclear whether or not the grass was actually underneath the subcutaneous tissue. The possibilities as he did have an injury due to vegetation and now has cellulitis. Or treating for cellulitis with Keflex. Patient's to get reevaluated if worse or any questions or concerns. - Diagnoses Provider Diagnosis: Cellulitis of left lower leg Discharge - Sign-Out/Discharge Documenting (check all that apply): Patient Departure All imaging exams completed and their final reports reviewed: No Studies - Discharge Plan Condition: Stable Disposition: HOME Prescriptions: Cephalexin CAP* [Keflex CAP*] 500 mg PO QID #40 cap Patient Education Materials: Cellulitis (ED) Forms: *Work Release Referrals: [facility] [place] [facility] REFERRAL [Outside] Additional Instructions: FOLLOW UP WITH YOUR DOCTOR IF NOT COMPLETELY IMPROVED. GO TO THE EMERGENCY DEPARTMENT IF YOUR CONDITION WORSENS; FEVER, YOU FEEL ILL OR ANY QUESTIONS OR CONCERNS. - Billing Disposition and Condition Condition: STABLE Disposition: Home
== END 2019-04-20 19:39 | disposition home or self-care (01) ==
LOC: UCEAST 18:35
DX: L03.116 Cellulitis of left lower limb (principal); F17.210 Nicotine dependence, cigarettes, uncomplicated
CPT/HCPCS: 99212; G0463

== ENCOUNTER 2019-04-22 09:03 | Emergency (ER) | payer SELFPAY ==
--- NOTE | 2019-04-22 09:36 | ED ---
Skin Complaint - HPI Summary HPI Summary: 54 year old male presents with rash on leg for the past 2 days. He states rash is not spreading but is not getting any better. He seen at urgent care was placed on Keflex two days ago. He has been taking the Keflex. He denies any fevers or chills. may have gotten bite by a spider. He states he was outside three days ago. He denies any known tick exposure. He states it really hurts when he walks. No chills. Never had this rash before. Has no medical conditions. - History of Current Complaint Chief Complaint: EDRashSkinAbscess Time Seen by Provider: 04/22/19 09:24 Stated Complaint: INJURY TO LEG PER PT Pain Intensity: 8 - Additional Pertinent History Primary Care Physician: CURTIS - Allergy/Home Medications Allergies/Adverse Reactions: Allergies Allergy/AdvReac Type Severity Reaction Status Date / Time No Known Allergies Allergy Verified 04/20/19 18:58 PMH/Surg Hx/FS Hx/Imm Hx Endocrine/Hematology History: Denies: Hx Diabetes Cardiovascular History: Denies: Hx Coronary Artery Disease, Hx Hypertension Respiratory History: Denies: Hx Asthma History: Denies: Hx Renal Disease Sensory History: Denies: Hx Contacts or Glasses, Hx Legally Blind, Hx Deafness, Hx Hearing Aid Opthamlomology History: Denies: Hx Contacts or Glasses, Hx Legally Blind Psychiatric History: Reports: Hx Post Traumatic Stress Disorder, Other Psychiatric Issues/Disorders - Dissociative behavior Denies: Hx Eating Disorder, Hx Community Mental Health Tx, Hx of Violent Episodes Against Others Comment Only: Hx Inpatient Treatment - Pt denied any psych hx Infectious Disease History: No Infectious Disease History: Denies: Traveled Outside the [place] in Last 30 Days - Family History Known Family History: Negative: Cardiac Disease - Social History Alcohol Use: Occasionally Alcohol Amount: alcoholic for decades Hx Substance Use: Yes Substance Use Type: Reports: Marijuana Hx Tobacco Use: Yes Smoking Status (MU): Heavy Every Day Tobacco Smoker Type: Cigarettes Review of Systems Negative: Fever Negative: Chest Pain Negative: Shortness Of Breath Positive: Rash All Other Systems Reviewed And Are Negative: Yes Physical Exam Triage Information Reviewed: Yes Vital Signs On Initial Exam: Initial Vitals Temp Pulse Resp BP Pulse Ox 97.5 F 57 14 143/77 99 04/22/19 09:05 04/22/19 09:05 04/22/19 09:05 04/22/19 09:05 04/22/19 09:05 Vital Signs Reviewed: Yes Appearance: Positive: Well-Appearing Skin: Positive: Warm, Dry, Other - erythema 7cm by 5cm of left leg with tenderness and warmth to the area Head/Face: Positive: Normal Head/Face Inspection Eyes: Positive: Normal, Conjunctiva Clear ENT: Positive: Pharynx normal Respiratory/Lung Sounds: Positive: Clear to Auscultation, Breath Sounds Present Cardiovascular: Positive: Normal, RRR Musculoskeletal: Positive: Normal Neurological: Positive: Normal Psychiatric: Positive: Normal Diagnostics - Vital Signs Vital Signs Temp Pulse Resp BP Pulse Ox 04/22/19 09:05 97.5 F 57 14 143/77 99 - Laboratory Result Diagrams: 04/22/19 09:42 04/22/19 09:42 Lab Statement: Any lab studies that have been ordered have been reviewed, and results considered in the medical decision making process. - Ultrasound No standard instances Ultrasound Interpretation Completed By: Radiologist Summary of Ultrasound Findings: IMPRESSION: MILD EDEMA WITHOUT LOCULATED FLUID COLLECTION TO SUGGEST ABSCESS. Course/Dx - Course Course Of Treatment: 54 year old male presents with rash on leg for the past 2 days. He states rash is not spreading but is not getting any better. He seen at urgent care was placed on Keflex two days ago. He has been taking the Keflex. He denies any fevers or chills. may have gotten bite by a spider. He states he was outside three days ago. He denies any known tick exposure. He states it really hurts when he walks. No chills. Never had this rash before. Has no medical conditions. On exam has a 7 cm x 4 cm area of erythema on the left warner. Afebrile. wbc normal. u/s no abscess. will switch to doxycycline for more coverage. told est care with primary to follow up. patient understand and agrees with plan. - Differential Diagnoses - Skin Complaint Differential Diagnoses: Abscess, Cellulitis, Contact Dermatitis, Tick Born Illness - Diagnoses Provider Diagnoses: Left leg cellulitis Discharge - Sign-Out/Discharge Documenting (check all that apply): Patient Departure Patient Received Moderate/Deep Sedation with Procedure: No - Discharge Plan Condition: Good Disposition: HOME Prescriptions: DOXYcycline CAP(*) [DOXYcycline 100MG CAP(*)] 100 mg PO BID #19 cap Patient Education Materials: Cellulitis (ED) Forms: *Work Release Referrals: [facility] [place] [facility] REFERR[facility] [Outside] Additional Instructions: stop Keflex. start doxycyline twice a day for 10 days elevate leg Take tyenlol or ibuprofen every 6 hours Follow up with primary within 3 days Return to ED if develop fever, area of redness spreads, or any new or worsening symptoms - Billing Disposition and Condition Condition: GOOD Disposition: Home - Attestation Statements Provider Attestation: I was available for consult. This patient was seen by the JEFF. The patient was not presented to, seen by, or examined by me. -Pieter
[2019-04-22 09:49] LABS: ABS Basophils 0.1 10^3/ul (0-0.2); ABS Eosinophils 0.4 10^3/ul (0-0.6); ABS Lymphocytes 1.7 10^3/ul (1.0-4.8); ABS Monocytes 0.7 10^3/ul (0-0.8); Eosinophil % 4.9 %; Hematocrit 47 % (42-52); Lymphocyte % 21.6 %; Mean Corpuscular HGB Conc 34 g/dL (31-36); Mean Corpuscular Hemoglobin 33 pg (27-31); Mean Corpuscular Volume 96 fL (80-94); Mean Platelet Volume 9.4 fL (7.4-10.4); Nucleated Red Blood Cells % 0.1; Platelet Count 200 10^3/uL (150-450); Red Blood Count 4.91 10^6 /uL (4.18-5.48); Red Cell Distribution Width 14 % (10-15); White Blood Count 7.9 10^3/uL (3.5-10.8)
[2019-04-22 10:29] LABS: Albumin/Globulin Ratio 1.7 (1-3); BUN/Creatinine Ratio 11.1 (8-20); EGFR African American 120.2 (>60); EGFR Non-African American 99.3 (>60); Globulin 2.3 g/dL (2-4); Potassium 4.2 mmol/L (3.5-5.0); Total Bilirubin 0.4 mg/dL (0.2-1.0); Total Protein 6.3 g/dL (6.4-8.9)
[2019-04-22] MEDS ORDERED: DOXYcycline CAP(*) 100 MG PO ONE (10:34)
[2019-04-22 11:10] VITALS: BP 122/70
--- NOTE | 2019-04-24 05:46 | PN ---
Progress Note - Progress Note Date of Service: 04/24/19 Note: lyme screen negative. no further action required.
== END 2019-04-22 11:08 | disposition home or self-care (01) ==
LOC: ED 09:03
DX: L03.116 Cellulitis of left lower limb (principal); R60.0 Localized edema; F17.210 Nicotine dependence, cigarettes, uncomplicated
CPT/HCPCS: 36415; 80053; 85025; 86618; 99282; A9270-GY

== ENCOUNTER 2019-09-07 10:12 | Emergency (ER) | payer SELFPAY ==
--- NOTE | 2019-09-07 10:19 | UC ---
FLU HPI - HPI Summary HPI Summary: 54 yo male presents with flu-like symptoms. He tells me that his and daughter at home were recently dx'd with the flu. Yesterday he developed body aches, fatigue, nausea with 2 episodes of vomiting, dry cough, and feeling feverish. He wanted to sleep all day yesterday. Took OTC tylenol with mild relief. Today feels about the same, but no more vomiting. Is drinking fluids well and small breakfast this am. Denies SOB, chest pain, abdominal pain. - History of Current Complaint Stated Complaint: FLU LIKE SYMPTOMS Time Seen by Provider: 09/07/19 10:18 Hx Obtained From: Patient Severity Currently: Moderate Severity Initially: Moderate Pain Intensity: 7 Pain Scale Used: 0-10 Numeric - Allergy/Home Medications Allergies/Adverse Reactions: Allergies Allergy/AdvReac Type Severity Reaction Status Date / Time No Known Allergies Allergy Verified 04/20/19 18:58 PMH/Surg Hx/FS Hx/Imm Hx - Additional Past Medical History Additional PMH: None - Surgical History Surgical History: None - Family History Known Family History: Negative: Cardiac Disease - Social History Lives: With Family Alcohol Use: Occasionally Alcohol Amount: alcoholic for decades Substance Use Type: Marijuana Smoking Status (MU): Heavy Every Day Tobacco Smoker Type: Cigarettes - Immunization History Most Recent Influenza Vaccination: n/a Most Recent Pneumonia Vaccination: n/a Review of Systems All Other Systems Reviewed And Are Negative: No Constitutional: Positive: Fever, Fatigue, Other - Body aches Skin: Positive: Negative Eyes: Positive: Negative ENT: Positive: Negative Respiratory: Positive: Cough Cardiovascular: Positive: Negative Gastrointestinal: Positive: Vomiting, Nausea Neurological: Positive: Negative Psychological: Positive: Negative Physical Exam - Summary Physical Exam Summary: GENERAL: NAD. WDWN. No pain distress. SKIN: No rashes, sores, lesions, or open wounds. HEENT: Head: AT/NC Eyes: EOM intact. Conjunctiva clear without inflammation or discharge. Ears: Hearing grossly normal. TMs intact, no bulging, erythema, or edema. Nose: Nasal mucosa pink and moist. NTTP maxillary and frontal sinus. Throat: Posterior oropharynx without exudates, erythema, or tonsillar enlargement. Uvula midline. NECK: Supple. Nontender. No lymphadenopathy. CHEST: CTAB. No accessory muscle use. Breathing comfortably and in no distress. CV: RRR. Pulses intact. Cap refill <2seconds NEURO: Alert. PSYCH: Age appropriate behavior. Triage Information Reviewed: Yes Vital Signs: Vital Signs: Temp Pulse Resp BP Pulse Ox 99.1 F 85 18 112/69 100 09/07/19 10:16 09/07/19 10:16 09/07/19 10:16 09/07/19 10:16 09/07/19 10:16 Laboratory Tests 09/07/19 09/07/19 10:31 10:33 Influenza A (Rapid) Negative Influenza B (Rapid) Negative Group A Strep Rapid Negative Vital Signs Reviewed: Yes Flu Course/Dx - Course Course Of Treatment: POC flu negative. Given exposure to flu with symptoms - he is asking for tamiflu prophylaxis at this time. - Differential Dx/Diagnosis Provider Diagnosis: Flu-like symptoms Discharge ED - Sign-Out/Discharge Documenting (check all that apply): Patient Departure All imaging exams completed and their final reports reviewed: No Studies - Discharge Plan Condition: Stable Disposition: HOME Prescriptions: Oseltamivir CAP* [Tamiflu CAP*] 75 mg PO DAILY #7 cap Patient Education Materials: Influenza (ED) Referrals: No Primary Care Phys,NOPCP [Primary Care Provider] - Additional Instructions: YOUR FLU TEST WAS NEGATIVE TODAY, BUT YOU ARE BEING TREATED YOU WERE EXPOSED TO THE FLU AND YOU ARE HAVING SYMPTOMS Most people with the flu recover within one to two weeks without treatment. However, serious complications of the flu can occur. Go to the ER immediately if you: -- You feel short of breath or have trouble breathing -- You have pain or pressure in your chest or stomach -- You have signs of being dehydrated, such as dizziness when standing or not passing urine -- You feel confused -- You cannot stop vomiting or you cannot drink enough fluids There are several groups of people who are at increased risk for flu complications. These include women, young children (<5 years of age and especially <2 years of age), people older than 65 years of age, and people with certain diseases such as chronic lung disease (such as asthma), heart disease, diabetes, immunosuppressing conditions (such as HIV infection or transplantation), and some other diseases. Treat symptoms Treating the symptoms of influenza can help you to feel better but will not make the flu go away faster. -- Rest until the flu is fully resolved, especially if the illness has been severe. -- Fluids Drink enough fluids so that you do not become dehydrated. One way to sports doctor if you are drinking enough is to look at the color of your urine. Normally, urine should be light yellow to nearly colorless. If you are drinking enough, you should pass urine every three to five hours. -- Acetaminophen (sample brand name: Tylenol) can relieve fever, headache, and muscle aches. Aspirin and medicines that include aspirin (eg, bismuth subsalicylate [sample brand name: Pepto-Bismol]) are not recommended for children under 18 because aspirin can lead to a serious disease called Manpreet syndrome. -- Cough medicines are not usually helpful; cough usually resolves without treatment. We do not recommend cough or cold medicine for children under age 6 years. Antiviral treatment Antiviral medicines can be used to treat or prevent influenza. When used as a treatment, the medicine does not eliminate flu symptoms, although it can reduce the severity and duration of symptoms by about one day. Not every person with influenza needs an antiviral medicine, but some people do; the decision is based upon several factors. If you are severely ill and/or have risk factors for developing complications of influenza, you will need an antiviral agent. People who are only mildly ill and have no risk factors for complications usually do not need to be treated with antiviral medication. - Billing Disposition and Condition Condition: STABLE Disposition: Home
[2019-09-07 10:22] VITALS: BP 112/69
[2019-09-07 10:45] LABS: Influenza A Molecular NEGATIVE (Negative); Influenza B Molecular NEGATIVE (Negative)
== END 2019-09-07 10:57 | disposition home or self-care (01) ==
LOC: UCEAST 10:12
DX: R53.83 Other fatigue (principal); R52 Pain, unspecified; R11.2 Nausea with vomiting, unspecified; R05 Cough; R50.9 Fever, unspecified; F17.210 Nicotine dependence, cigarettes, uncomplicated
CPT/HCPCS: 87651; 99212; G0463

== ENCOUNTER 2020-01-05 12:32 | Emergency (ER) | payer OTHER ==
[2020-01-05 13:57] LABS: ABS Basophils 0.1 10^3/ul (0-0.2); ABS Eosinophils 0.3 10^3/ul (0-0.6); ABS Lymphocytes 1.7 10^3/ul (1.0-4.8); ABS Monocytes 1.3 10^3/ul (0-0.8); Eosinophil % 1.4 %; Hematocrit 53 % (42-52); Lymphocyte % 9.6 %; Mean Corpuscular HGB Conc 34 g/dL (31-36); Mean Corpuscular Hemoglobin 33 pg (27-31); Mean Corpuscular Volume 96 fL (80-94); Platelet Count 223 10^3/uL (150-450); Red Cell Distribution Width 14 % (10-15); White Blood Count 17.5 10^3/uL (3.5-10.8)
[2020-01-05 14:16] LABS: Albumin 4.2 g/dL (3.2-5.2); Albumin/Globulin Ratio 1.5 (1-3); BUN/Creatinine Ratio 13.1 (8-20); Calcium 9.1 mg/dL (8.6-10.3); EGFR African American 95.3 (>60); EGFR Non-African American 78.8 (>60); Globulin 2.8 g/dL (2-4); Potassium 4.2 mmol/L (3.5-5.0); Total Bilirubin 0.8 mg/dL (0.2-1.0)
[2020-01-05 15:33] VITALS: BP 122/80
== END 2020-01-05 15:31 | disposition home or self-care (01) ==
LOC: ED 12:32